=== PATIENT | female | born 1960 | race Caucasian/White ===

== ENCOUNTER → 2023-08-31 | Outpatient (CLI) | payer OTHER ==
[2023-08-31 09:50] LABS: HEMATOCRIT 41.3 % (36.0-47.0); HEMOGLOBIN 14.3 g/dl (12.0-15.5); MEAN CORPUSCULAR HGB CONC 34.6 g/dl (32.0-36.5); MEAN CORPUSCULAR VOLUME 98.1 fl (80.0-96.0); PLATELET COUNT, AUTOMATED 183 10^3/uL (150-450); RED BLOOD COUNT 4.21 10^6/uL (4.00-5.40); WHITE BLOOD COUNT 4.1 10^3/uL (4.0-10.0)
[2023-08-31 10:12] LABS: HEMOGLOBIN A1c 4.9 % (4.0-6.0)
[2023-08-31 10:30] LABS: IRON (FE) 149 UG/DL (50-170)
[2023-08-31 10:34] LABS: ALBUMIN 4.1 G/DL (3.2-5.2); ALKALINE PHOSPHATASE 47 U/L (46-116); ALT/SGPT 21 U/L (7.0-40); AST/SGOT 18 U/L (<34); BILIRUBIN,TOTAL 0.7 MG/DL (0.3-1.2); BLOOD UREA NITROGEN 13 MG/DL (9-23); CALCIUM LEVEL 9.4 MG/DL (8.3-10.6); CARBON DIOXIDE LEVEL 29 MMOL/L (20-31); CHLORIDE LEVEL 105 MMOL/L (98-107); CHOLESTEROL LEVEL 223 MG/DL (<200); CHOLESTEROL RISK RATIO 3.17 (<5); CREATININE FOR GFR 0.74 MG/DL (0.55-1.30); FOLATE > 24.00 NG/ML (>5.4); FREE T4 1.11 NG/DL (0.89-1.76); GLOMERULAR FILTRATION RATE > 60.0 (>45); GLUCOSE, FASTING 91 MG/DL (74-106); HDL CHOLESTEROL 70.3 MG/DL (>40); LDL CHOLESTEROL 128.3 MG/DL (<100); NON-HDL-C 152.7 MG/DL; POTASSIUM SERUM 4.5 MMOL/L (3.5-5.1); SODIUM LEVEL 137 MMOL/L (136-145); THYROID STIMULATING HORMONE 2.026 uIU/ML (0.55-4.78); TOTAL PROTEIN 6.8 G/DL (5.7-8.2); TRIGLYCERIDES LEVEL 122 MG/DL (<150); VITAMIN B12 LEVEL 478 PG/ML (211-911)
[2023-08-31 11:10] LABS: HEPATITIS C VIRUS ABY INDEX 0.05 INDEX (<0.8)
== END ==
LOC: M LAB 09:01
PROVIDERS: ATTEND Internal Medicine
DX: R53.83 Other fatigue (principal)

== ENCOUNTER → 2023-09-03 | Outpatient (CLI) | payer OTHER ==
[~2023-09-03] MED LIST: PROHANCE 279.3MG/ML 5ML VIAL ONE
== END ==
LOC: M PLAIMG 09:40
PROVIDERS: ATTEND Nurse Practitioner Family
DX: Z12.31 Encounter for screening mammogram for malignant neoplasm of breast (principal); Z80.3 Family history of malignant neoplasm of breast
CPT/HCPCS: A9576; C8908